=== PATIENT | female | born 1960 | race African-American/Black ===

== ENCOUNTER 2022-05-04 20:49 | Inpatient (IN) | payer OTHER ==
[~2022-05-04] VITALS: Ht 160 cm; Wt 57.2 kg
[2022-05-04] MEDS ORDERED: ACETAMINOPHEN 325MG TABLET PO STA (21:17)
[2022-05-04] MEDS ORDERED: VANCOMYCIN 1G PREMIX 200 ML IV ONE (21:30)
[2022-05-04] MEDS ORDERED: PIPERACILLIN/TAZ 3.375G PREMIX 50 ML IV ONE (21:30)
[2022-05-04] MEDS ORDERED: SODIUM CHLORIDE 0.9% 1000ML BAG (SEPSIS BOLUS) IV ONE (21:30)
[2022-05-04 22:40] LABS: MEAN CORPUSCULAR HEMOGLOBIN 22.9 pg (28.0-32.0); MEAN CORPUSCULAR VOLUME 73.2 fL (81.0-99.0); MEAN PLATELET VOLUME 7.1 fl (7.4-10.4); PLATELET 75 x1000/uL (130-400); RED BLOOD CELL COUNT 1.89 mill/uL (4.2-5.4); RED CELL DISTRIBUTION WIDTH 21.8 % (11.6-14.6)
[2022-05-04 22:45] LABS: CHLORIDE 112 mEq/L (98-107)
[2022-05-04] MEDS ORDERED: KETOROLAC 30MG/ML VIAL IV ONE (22:45)
[2022-05-04] MEDS ORDERED: ACETAMINOPHEN 650MG SUPP PR ONE (22:45)
[2022-05-04 22:46] LABS: HEMOGLOBIN. 4.3 g/dL (12.0-16.0)
[2022-05-04 22:47] LABS: HEMATOCRIT. 13.8 % (36.0-48.0)
[2022-05-04 23:00] LABS: CREATINE KINASE 136 IU/L (26-192); ETHANOL BLOOD < 10 mg/dL
[2022-05-04 23:24] LABS: PLATELET ESTIMATE DECREASED
[2022-05-04 23:34] LABS: CLARITY URINE CLOUDY (CLEAR); COLOR URINE DARK YELLOW (YELLOW); KETONES URINE TRACE (NEGATIVE); LEUKOCYTE ESTERASE URINE TRACE (NEGATIVE); NITRITE URINE NEGATIVE (NEGATIVE); OCCULT BLOOD URINE NEGATIVE (NEGATIVE); PROTEIN URINE 2+ (NEGATIVE); SPECIFIC GRAVITY URINE 1.024 (1.005-1.030)
[2022-05-05] VITALS (42 sets, daily range): BP systolic 87–123; BP diastolic 41–79
[2022-05-05] LABS: *AMPHETAMINES SCREEN URINE NEGATIVE (NEGATIVE); *BARBITURATES SCREEN URINE NEGATIVE (NEGATIVE); *BENZODIAZEPINES SCREEN URINE NEGATIVE (NEGATIVE); *COCAINE SCREEN URINE NEGATIVE (NEGATIVE); CANNABINOID URINE SCREEN PRESUMTIVE POSITIVE (NEGATIVE); METHADONE URINE SCREEN NEGATIVE (NEGATIVE); OPIATES URINE SCREEN PRESUMTIVE POSITIVE (NEGATIVE); PHENCYCLIDINE URINE SCREEN NEGATIVE (NEGATIVE)
[2022-05-05] MEDS ORDERED: MORPHINE SULFATE 4 MG/ML CPJ (NOT FOR IM USE) IV ONE
[2022-05-05] MEDS: NA PHOS,M-B/NA PHOS,DI-BA ENEMA 118ML PR PRN (05:15)
[2022-05-05 08:21] LABS: HEMATOCRIT. 30.5 % (36.0-48.0); HEMOGLOBIN. 9.8 g/dL (12.0-16.0); MEAN CORPUSCULAR HEMOGLOBIN 26.1 pg (28.0-32.0); MEAN CORPUSCULAR VOLUME 81.2 fL (81.0-99.0); MEAN PLATELET VOLUME 8.4 fl (7.4-10.4); PLATELET 52 x1000/uL (130-400); RED BLOOD CELL COUNT 3.76 mill/uL (4.2-5.4); RED CELL DISTRIBUTION WIDTH 23.6 % (11.6-14.6)
[2022-05-05] MEDS ORDERED: ONDANSETRON HCL 4MG/2ML INJ IV PRN (09:15)
[2022-05-05] MEDS ORDERED: ACETAMINOPHEN 325MG TABLET PO PRN (09:15)
[2022-05-05 09:24] LABS: PLATELET ESTIMATE MARKEDLY DECREASED
[2022-05-05] MEDS ORDERED: AZITHROMYCIN 500MG/250ML 250 ML IV ONE (11:00)
[2022-05-05] MEDS: CEFTRIAXONE 1,000 MG in DEXTROSE 5% WATER 50 ML IV SCH (11:44)
[2022-05-05] MEDS: SODIUM CHLORIDE 0.45% 1,000 ML IV SCH ×2 (11:44→22:35)
[2022-05-05 11:59] LABS: BG BASE EXCESS -5.1 mmol/L (-2.0-2.0); BG CARBOXYHEMOGLOBIN 0.8 % (0.5-1.5); BG DEOXYHEMOGLOBIN 3.5 % (0.0-5.0); BG FRACTION INSPIRED OXYGEN 21; BG HCO3 ACT 18.1 mmol/L (22.0-26.0); BG METHEMOGLOBIN 0.3 % (0.0-1.5); BG OXYGEN SATURATION 96.5 % (92.0-98.5); BG OXYHEMOGLOBIN 95.4 % (94.0-97.0); BG PCO2 27.6 mmHg (35.0-45.0); BG PH 7.434 (7.350-7.450); BG PO2 77.3 mmHg (75.0-100.0); BG SAMPLE SITE RIGHT BRACHIAL; BG TOTAL HEMOGLOBIN 10.1 g/dL (12.0-18.0); BG VENT MODE ROOM AIR
[2022-05-05 12:15] LABS: CHLORIDE 111 mEq/L (98-107)
[2022-05-05] MEDS ORDERED: PHENOL/SODIUM PHENOLATE 1.4% SRPAY 177ML MM ONE (13:00)
[2022-05-05] MEDS ORDERED: PHENOL/SODIUM PHENOLATE 1.4% SRPAY 177ML MM PRN (13:15)
[2022-05-05] MEDS: AZITHROMYCIN 500MG in DEXTROSE 5% WATER 250ML IV SCH (14:44)
[2022-05-05] MEDS: POTASSIUM CHLORIDE 20MEQ/PACKET PO NR ×2 (16:05→16:17)
[2022-05-05] MEDS ORDERED: NALOXONE HCL 0.4MG/ML VIAL IV PRN (17:45)
[2022-05-05] MEDS: OXYCODONE HCL/ACETAMINOPHEN 5/325MG TABLET PO SCH (22:02)
[2022-05-06] VITALS (39 sets, daily range): BP systolic 103–149; BP diastolic 68–97
[2022-05-06] MEDS: OXYCODONE HCL/ACETAMINOPHEN 5/325MG TABLET PO SCH ×4 (05:13→22:00)
[2022-05-06 05:47] LABS: HEMATOCRIT. 29.2 % (36.0-48.0); HEMOGLOBIN. 9.3 g/dL (12.0-16.0); MEAN CORPUSCULAR HEMOGLOBIN 26.5 pg (28.0-32.0); MEAN CORPUSCULAR VOLUME 83.1 fL (81.0-99.0); MEAN PLATELET VOLUME 8.3 fl (7.4-10.4); RED BLOOD CELL COUNT 3.51 mill/uL (4.2-5.4); RED CELL DISTRIBUTION WIDTH 22.8 % (11.6-14.6)
[2022-05-06 05:56] LABS: CHLORIDE 114 mEq/L (98-107)
[2022-05-06] MEDS: CEFTRIAXONE 1,000 MG in DEXTROSE 5% WATER 50 ML IV SCH (08:59)
[2022-05-06] MEDS ORDERED: POTASSIUM CHLORIDE 20MEQ TABLET SR PO SCH (09:00)
[2022-05-06] MEDS ORDERED: FILGRASTIM-TBO 300 MCG/0.5 ML SYRINGE SQ NR (12:00)
[2022-05-06 12:02] LABS: NUCLEATED RED BLOOD CELLS 3 /100 WBC
[2022-05-06 12:03] LABS: PLATELET 34 x1000/uL (130-400); PLATELET ESTIMATE MARKEDLY DECREASED
[2022-05-06] MEDS: AZITHROMYCIN 500MG in DEXTROSE 5% WATER 250ML IV SCH (13:11)
[2022-05-06] MEDS: SODIUM CHLORIDE 0.45% 1,000 ML IV SCH (14:29)
[2022-05-06] MEDS: NA PHOS,M-B/NA PHOS,DI-BA ENEMA 118ML PR PRN (14:29)
[2022-05-06] MEDS: LORAZEPAM 2MG/ML CPJ IV PRN (22:05)
[2022-05-07] VITALS (30 sets, daily range): BP systolic 128–170; BP diastolic 70–114
[2022-05-07] MEDS ORDERED: FILGRASTIM 300 MCG/ML VIAL SUBCUT ONE (04:15)
[2022-05-07] MEDS: SODIUM CHLORIDE 0.45% 1,000 ML IV SCH ×2 (04:26→13:53)
[2022-05-07] MEDS: LORAZEPAM 2MG/ML CPJ IV PRN ×2 (04:26→18:19)
[2022-05-07] MEDS: OXYCODONE HCL/ACETAMINOPHEN 5/325MG TABLET PO SCH ×3 (06:00→17:30)
[2022-05-07 06:20] LABS: HEMOGLOBIN. 10.4 g/dL (12.0-16.0); MEAN CORPUSCULAR HEMOGLOBIN 26.6 pg (28.0-32.0); MEAN CORPUSCULAR VOLUME 82.2 fL (81.0-99.0); RED BLOOD CELL COUNT 3.89 mill/uL (4.2-5.4); RED CELL DISTRIBUTION WIDTH 23.4 % (11.6-14.6)
[2022-05-07 06:28] LABS: CHLORIDE 113 mEq/L (98-107)
[2022-05-07 06:43] LABS: T4 FREE 1.29 ng/dL (0.76-1.46)
[2022-05-07] MEDS ORDERED: GUAIFENESIN-DM 200MG-20MG/10ML UDC PO PRN (08:45)
[2022-05-07] MEDS: CEFTRIAXONE 1,000 MG in DEXTROSE 5% WATER 50 ML IV SCH (09:23)
[2022-05-07] MEDS ORDERED: METOPROLOL TARTRATE 25MG TABLET PO NR (09:30)
[2022-05-07] MEDS ORDERED: THROAT LOZENGES-BENZOCAINE/MENTH/CETYLPYRD CL LOZENGES MM PRN (09:30)
[2022-05-07 11:47] LABS: NUCLEATED RED BLOOD CELLS 3 /100 WBC
[2022-05-07 11:49] LABS: PLATELET ESTIMATE MARKEDLY DECREASED
[2022-05-07 11:52] LABS: MEAN PLATELET VOLUME 8.4 fl (7.4-10.4); PLATELET 23 x1000/uL (130-400)
[2022-05-07] MEDS: AZITHROMYCIN 500MG in DEXTROSE 5% WATER 250ML IV SCH (13:48)
[2022-05-07] MEDS ORDERED: POTASSIUM CHLORIDE 20MEQ TABLET SR PO NR (14:15)
[2022-05-07] MEDS ORDERED: POTASSIUM CHLORIDE 20MEQ TABLET SR PO ONE (14:15)
[2022-05-07 15:36] LABS: INR 1.4; PROTHROMBIN TIME 14.6 sec (9.6-11.0)
[2022-05-07] MEDS: METOPROLOL TARTRATE 25MG TABLET PO SCH (20:16)
[2022-05-08] VITALS (43 sets, daily range): BP systolic 117–159; BP diastolic 65–96
[2022-05-08] MEDS: OXYCODONE HCL/ACETAMINOPHEN 5/325MG TABLET PO SCH ×3 (00:09→17:06)
[2022-05-08] MEDS: LORAZEPAM 2MG/ML CPJ IV PRN ×3 (00:10→20:13)
[2022-05-08] MEDS: SODIUM CHLORIDE 0.45% 1,000 ML IV SCH ×2 (04:31→17:07)
[2022-05-08 05:54] LABS: CHLORIDE 111 mEq/L (98-107)
[2022-05-08 06:21] LABS: HEMATOCRIT. 31.3 % (36.0-48.0); HEMOGLOBIN. 10.1 g/dL (12.0-16.0); MEAN CORPUSCULAR HEMOGLOBIN 26.2 pg (28.0-32.0); MEAN PLATELET VOLUME 8.9 fl (7.4-10.4); RED BLOOD CELL COUNT 3.87 mill/uL (4.2-5.4)
[2022-05-08 06:32] LABS: PLATELET 40 x1000/uL (130-400)
[2022-05-08] MEDS: METOPROLOL TARTRATE 25MG TABLET PO SCH ×2 (08:45→20:13)
[2022-05-08] MEDS: CEFTRIAXONE 1,000 MG in DEXTROSE 5% WATER 50 ML IV SCH (11:10)
[2022-05-08] MEDS ORDERED: POTASSIUM CHLORIDE INJ 40 MEQ in DEXT 5% WATER 250 ML IV ONE (11:45)
[2022-05-08] MEDS ORDERED: VISCOUS LIDOCAINE 2% 15 ML UDC MM PRN (11:45)
[2022-05-08] MEDS ORDERED: LABETALOL 5MG/ML SYR 20 MG/4 ML SYRINGE IV NR (12:30)
[2022-05-08] MEDS ORDERED: PHENOL/SODIUM PHENOLATE 1.4% SRPAY 177ML MM NR (13:00)
[2022-05-08] MEDS: KCL 20MEQ/100ML X 2 FOR TOTAL KCL 40MEQ/200ML IV SCH ×2 (13:05→15:19)
[2022-05-08] MEDS: AZITHROMYCIN 500MG in DEXTROSE 5% WATER 250ML IV SCH (13:07)
[2022-05-08 16:46] LABS: PLATELET ESTIMATE MARKEDLY DECREASED
== END 2022-05-08 22:15 | disposition short-term general hospital (02) | DRG 871 ==
LOC: ER 20:49 → MICUSO 05-05 00:39 → EDBEDREQDT 05-05 00:51 → EDBEDREQ 05-05 00:51 → EDBEDREQTM 05-05 00:51
PROVIDERS: ADMIT Internal Medicine; ATTEND Internal Medicine
PROC: 30233N1 Transfusion of Nonautologous Red Blood Cells into Peripheral Vein, Percutaneous Approach (ICD-10-PCS; principal; 2022-05-05)
DX: A41.89 Other specified sepsis (principal); E43 Unspecified severe protein-calorie malnutrition; G93.41 Metabolic encephalopathy; U07.1 COVID-19; J12.82 Pneumonia due to coronavirus disease 2019; C34.90 Malignant neoplasm of unspecified part of unspecified bronchus or lung; C79.31 Secondary malignant neoplasm of brain; D61.818 Other pancytopenia; J44.0 Chronic obstructive pulmonary disease with (acute) lower respiratory infection; I82.511 Chronic embolism and thrombosis of right femoral vein; E87.8 Other disorders of electrolyte and fluid balance, not elsewhere classified; R74.01 Elevation of levels of liver transaminase levels; D50.9 Iron deficiency anemia, unspecified; D69.6 Thrombocytopenia, unspecified; R65.20 Severe sepsis without septic shock; Z85.118 Personal history of other malignant neoplasm of bronchus and lung; Z87.891 Personal history of nicotine dependence; Z92.3 Personal history of irradiation
CPT/HCPCS: 36415; 36600; 71045; 80048; 80053; 80076; 80305; 80307; 80320; 80329; 81003; 82140; 82270; 82375; 82550; 82805; 82962; 83605; 83735; 83880; 84145; 84439; 84443; 84481; 84484; 84550; 85025; 85379; 86850; 86900; 86920; 87426; 87804; 93005; 93970; 97162; 97166; 99291; A6261; C9803; J0456; J0696; J1442; J1885; J2060; J2543; J3370; J3480; J3490; J7030; J7060; P9016; G0480